=== PATIENT | male | born 1950 | race Caucasian/White ===

== ENCOUNTER → 2020-07-27 | Outpatient (CLI) | payer MEDICARE, OTHER | LOC: CT 08:39 | DX: Z09 Encounter for follow-up examination after completed treatment for conditions other than malignant neoplasm (principal); Z86.010 Personal history of colon polyps; K59.00 Constipation, unspecified; D17.79 Benign lipomatous neoplasm of other sites | CPT/HCPCS: 36415; 74160; 82565; 84520; Q9967 ==